=== PATIENT | female | born 1950 | race African-American/Black ===

== ENCOUNTER 2016-05-17 09:25 | Emergency (ER) | payer BC, OTHER ==
[~2016-05-17] VITALS: Ht 167.6 cm; Wt 106.6 kg
[~2016-05-17 09:25] MED LIST: AZITHROMYCIN 2250 MG PO; CIPROFLOXACIN500 M1 PO; CLARINEX5 MG PO; FLOMAX0.4 MG PO; FLONASE 0.05%50 MCG NASAL; FLONASE16 GM INH; HYDROCHLOROTH12.5 M1 PO; LISINOPRIL-HCT1 EAC1 PO; LISINOPRIL20 MG PO; LISINOPRIL5 MG PO; NORCO 5-325 TA1 EACH PO; ONDANSETRON HCL4 M2 PO; PERCOCET 5-3251 EACH PO; TESSALON PERLE100 MG PO; ZOFRAN ODT4 MG PO; ZOFRAN4 MG PO; ZPAK PO
[2016-05-17 09:57] LABS: ABSOLUTE NEUTROPHILS 4.9 thou/uL (1.4-8.2); BASOPHILS 0.7 % (0.0-2.0); EOSINOPHILS 0.3 % (0.0-3.0); HEMATOCRIT 32.7 % (37.0-47.0); HEMOGLOBIN 10.6 gm/dL (12.0-15.0); LYMPHOCYTES 33.5 % (24.0-44.0); MCH 26.7 pg (26.0-34.0); MCHC 32.5 % (28.0-37.0); MONOCYTES 10.2 % (1.0-8.0); PLATELET COUNT 333 thou/uL (150-400); POLYS 55.3 % (36.0-66.0); RBC 3.99 mil/uL (4.20-5.00); RDW 19.6 % (10.5-14.5); WBC 8.9 thou/uL (4.0-11.0)
[2016-05-17 09:59] LABS: CREATININE 0.7 mg/dL (0.6-1.3); MANUAL DIFF NO
[2016-05-17 10:00] LABS: POTASSIUM 5.6 mmol/L (3.5-5.1)
[2016-05-17 10:31] LABS: URINE BILIRUBIN NEGATIVE (Negative); URINE BLOOD NEGATIVE (Negative); URINE COLOR YELLOW; URINE GLUCOSE-RANDOM* NEGATIVE (Negative); URINE KETONES NEGATIVE (Negative); URINE NITRITE NEGATIVE (Negative); URINE PROTEIN (DIPSTICK) NEGATIVE (Negative); URINE SPECIFIC GRAVITY <= 1.005 (1.003-1.035); URINE UROBILINOGEN 0.2 E.U./dl (0.2-1.0)
[2016-05-17] MEDS ORDERED: HYDROCODONE-AP1 EAC6 PO (11:22)
[2016-05-17] MEDS ORDERED: FLOMAX0.4 MG PO (11:22)
[2016-05-17 11:45] VITALS: BP 181/59
== END 2016-05-17 11:50 | disposition home or self-care (01) ==
LOC: ER 09:25
PROVIDERS: Nurse Practitioner
DX: N20.0 Calculus of kidney (principal); I10 Essential (primary) hypertension; Z90.710 Acquired absence of both cervix and uterus

== ENCOUNTER 2019-03-03 15:26 | Emergency (ER) | payer OTHER ==
[~2019-03-03] VITALS: Ht 167.6 cm; Wt 104.3 kg
[~2019-03-03 15:26] MED LIST changes: +HYDROCODONE-AP1 EAC6 PO
[2019-03-03] MEDS ORDERED: LISINOPRIL-HCT1 EAC1 PO (15:45)
[2019-03-03] MEDS ORDERED: AZITHROMYCIN 2250 MG PO (17:03)
[2019-03-03 17:21] VITALS: BP 157/92
== END 2019-03-03 17:24 | disposition home or self-care (01) ==
LOC: ER 15:26
DX: J18.9 Pneumonia, unspecified organism (principal); I10 Essential (primary) hypertension; E66.9 Obesity, unspecified; Z68.37 Body mass index [BMI] 37.0-37.9, adult; Z90.710 Acquired absence of both cervix and uterus; Z87.442 Personal history of urinary calculi

== ENCOUNTER 2020-12-09 13:00 | Emergency (ER) | payer OTHER ==
[~2020-12-09] VITALS: Ht 167.6 cm; Wt 103.4 kg
[2020-12-09 13:04] VITALS: BP 183/87
[2020-12-09] MEDS ORDERED: MELOXICAM15 MG PO (13:07)
[2020-12-09] MEDS ORDERED: ZPAK PO (14:39)
== END 2020-12-09 14:40 | disposition home or self-care (01) ==
LOC: ER 13:00
PROVIDERS: Emergency Medicine
DX: U07.1 COVID-19 (principal); J12.82 Pneumonia due to coronavirus disease 2019; I10 Essential (primary) hypertension; Z90.710 Acquired absence of both cervix and uterus; Z79.1 Long term (current) use of non-steroidal anti-inflammatories (NSAID); Z79.899 Other long term (current) drug therapy

== ENCOUNTER 2021-04-17 11:58 | Emergency (ER) | payer OTHER ==
[~2021-04-17] VITALS: Ht 167.6 cm; Wt 95.3 kg
[~2021-04-17 11:58] MED LIST changes: +MELOXICAM15 MG PO
[2021-04-17 14:41] LABS: HEMATOCRIT 26.3 % (37.0-47.0); HEMOGLOBIN 8.7 gm/dL (12.0-15.0); MCH 27.7 pg (26.0-34.0); MCHC 33.1 g/dL (28.0-37.0); MCV 83.6 fL (80.0-100.0); RBC 3.15 mil/uL (4.20-5.00); RDW 21.1 % (10.5-14.5); WBC 10.7 thou/uL (4.0-11.0)
[2021-04-17 14:51] LABS: CALCIUM 9.1 mg/dL (8.5-10.1); CREATININE 0.8 mg/dL (0.6-1.0); POTASSIUM 4.5 mmol/L (3.5-5.1)
[2021-04-17 14:57] LABS: ALBUMIN 2.6 g/dL (3.4-5.0); TOTAL BILIRUBIN 0.3 mg/dL (0.2-1.0)
[2021-04-17 16:32] LABS: URINE BILIRUBIN NEGATIVE (Negative); URINE BLOOD TRACE (Negative); URINE CLARITY CLEAR; URINE COLOR YELLOW; URINE GLUCOSE-RANDOM* NEGATIVE (Negative); URINE KETONES TRACE (Negative); URINE LEUKOCYTES-REFLEX NEGATIVE (Negative); URINE NITRITE-REFLEX NEGATIVE (Negative); URINE PROTEIN (DIPSTICK) NEGATIVE (Negative); URINE SPECIFIC GRAVITY <= 1.005 (1.005-1.035); URINE UROBILINOGEN 0.2 E.U./dl (0.2-1.0)
[2021-04-17] MEDS ORDERED: ZANAFLEX4 MG PO (17:17)
[2021-04-17] MEDS ORDERED: ULTRAM 50MG TAB50 MG PO (17:17)
[2021-04-17 17:51] VITALS: BP 148/94
== END 2021-04-17 17:53 | disposition home or self-care (01) ==
LOC: ER 11:58
PROVIDERS: Emergency Medicine; Physician Assistant
DX: M54.50 Low back pain, unspecified (principal); M79.604 Pain in right leg; D64.9 Anemia, unspecified; I10 Essential (primary) hypertension; Z90.710 Acquired absence of both cervix and uterus; Z87.442 Personal history of urinary calculi; Z86.16 Personal history of COVID-19; Z79.1 Long term (current) use of non-steroidal anti-inflammatories (NSAID); Z79.899 Other long term (current) drug therapy